=== PATIENT | male | born 1960 | race African-American/Black ===

== ENCOUNTER 2018-07-11 03:31 | Emergency (ER) | payer OTHER ==
[~2018-07-11] VITALS: Ht 180.3 cm; Wt 83.2 kg
[2018-07-11 03:35] VITALS: Ht 180.3 cm; Wt 83.2 kg
[2018-07-11] MEDS ORDERED: SOD CHLORIDE 0.9% 1,000 ML IV STA (04:16)
[2018-07-11] MEDS ORDERED: ONDANSETRON 4 MG INJ IV STA (04:16)
[2018-07-11] MEDS ORDERED: LIDOCAINE/MYLANTA 40 ML BTL PO STA (04:16)
[2018-07-11] MEDS ORDERED: FAMOTIDINE 20 MG INJ IV STA (04:16)
--- NOTE | 2018-07-11 04:19 | ERD ---
ER Documentation Chief Complaint Chief Complaint chest pain/abdominal pain x 2 days HPI This is a 58-year-old male with no reported past medical history who is presenting with 2-3 days of feeling generally unwell, reported fever/chills, left upper quadrant abdominal pain, nausea, a few episodes of nonbilious nonbloody vomiting, productive cough of clear sputum with a mild aching chest discomfort that is exacerbated by coughing. The patient also endorses waxing and waning significant lightheadedness with a sensation of passing out recently while driving. 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 The patient reports that his symptoms began a few hours after eating an egg Mc[employer] at [employer]. He does not report being around any sick contacts. He does not report any alleviating or exacerbating factors. He denies any constipation or diarrhea. He has not had any black or bloody or tarry stools. He denies dysur ia or hematuria or urgency or frequency. The patient has had no headache or vision changes. The patient does not endorse neck or back pain. The patient denies dizziness. The patient has had no trouble breathing. The patient denies nausea or vomiting. The patient has had no focal deficits. The patient has had no weakness or numbness or tingling to the face or extremities. ROS All systems reviewed and are negative except as per history of present illness. Allergies Allergies: Coded Allergies: iodine (Verified Allergy, Unknown, 07/11/18) PMhx/Soc Medical and Surgical Hx: pt denies Medical Hx, pt denies Surgical Hx History of Surgery: No Hx Neurological Disorder: No Hx Respiratory Disorders: No Hx Cardiac Disorders: No Hx Psychiatric Problems: No Hx Miscellaneous Medical Probl: No Hx Alcohol Use: No Hx Substance Use: No Hx Tobacco Use: No FmHx Family History: No diabetes Physical Exam Vitals Vital Signs Date Temp Pulse Resp B/P (MAP) Pulse Ox O2 O2 Flow FiO2 Time Delivery Rate 07/11/18 99.2 92 18 129/62 95 Room Air 04:00 (84) 07/11/18 99.2 110 18 129/62 95 03:35 (84) Physical Exam Const: No apparent distress, well-developed, well-nourished Head: Normocephalic, Atraumatic Eyes: Normal Conjunctiva. Extraocular movements intact. Pupils equal, round and reactive to light ENT: Normal External Ears, Nose and Mouth. Neck: Full range of motion. No meningismus. Resp: Clear to auscultation bilaterally, No wheezes, rales or rhonchi Cardio: Regular rate and rhythm. No murmurs, rubs or gallops Abd: Obese, soft, non distended. Mild epigastric and left upper quadrant tenderness. Normal bowel sounds Skin: No petechiae or rashes Back: No midline tenderness. No CVA tenderness Ext: No cyanosis, or edema Neur: Awake and alert, oriented 4. Cranial nerves intact. No facial droop. Normal strength, sensation and coordination. Psych: Normal Mood and Affect Result Diagram: 07/11/18 0355 07/11/18 0355 Results 24 hrs Laboratory Tests Test 07/11/18 03:55 White Blood Count 7.7 10^3/ul Red Blood Count 4.53 10^6/ul Hemoglobin 14.7 g/dl Hematocrit 44.3 % Mean Corpuscular Volume 97.8 fl Mean Corpuscular Hemoglobin 32.5 pg Mean Corpuscular Hemoglobin Concent 33.2 g/dl Red Cell Distribution Width 13.0 % Platelet Count 243 10^3/UL Mean Platelet Volume 8.9 fl Immature Granulocytes % 0.300 % Neutrophils % 72.3 % Lymphocytes % 16.7 % Monocytes % 7.1 % Eosinophils % 3.1 % Basophils % 0.5 % Nucleated Red Blood Cells % 0.0 /100WBC Immature Granulocytes # 0.020 10^3/ul Neutrophils # 5.5 10^3/ul Lymphocytes # 1.3 10^3/ul Monocytes # 0.5 10^3/ul Eosinophils # 0.2 10^3/ul Basophils # 0.0 10^3/ul Nucleated Red Blood Cells # 0.0 10^3/ul Prothrombin Time 12.4 Sec Prothrombin Time Ratio 1.0 INR International Normalized Ratio 0.91 Sodium Level 142 mmol/L Potassium Level Pending Chloride Level 105 mmol/L Carbon Dioxide Level 27 mmol/L Anion Gap 10 Blood Urea Nitrogen 14 mg/dl Creatinine 1.41 mg/dl Est Glomerular Filtrat Rate mL/min 52 mL/min Glucose Level 139 mg/dl Calcium Level 9.1 mg/dl Total Bilirubin 0.4 mg/dl Direct Bilirubin 0.00 mg/dl Indirect Bilirubin 0.4 mg/dl Aspartate Amino Transf (AST/SGOT) 51 IU/L Alanine Aminotransferase (ALT/SGPT) 28 IU/L Alkaline Phosphatase 81 IU/L Troponin I 0.014 ng/ml Total Protein 8.1 g/dl Albumin 4.4 g/dl Globulin 3.70 g/dl Albumin/Globulin Ratio 1.18 Lipase 45 U/L Current Medications Medications Dose Sig/Jay Start Time Status Last (Trade) Ordered Route PRN Stop Time Admin Dose Reason Admin Sodium 1,000 ml @ Q1H STAT 07/11/18 DC 07/11/18 Chloride 1,000 mls/hr IV 04:16 04:20 07/11/18 05:15 Ondansetron 4 mg ONCE STAT 07/11/18 DC 07/11/18 HCl (Zofran IV 04:16 05:25 Inj) 07/11/18 04:36 Famotidine 20 mg ONCE STAT 07/11/18 DC 07/11/18 (Pepcid Iv) IV 04:16 05:25 07/11/18 04:36 40 ml ONCE STAT 07/11/18 DC 07/11/18 Miscellaneous PO 04:16 05:25 Medication 07/11/18 04:36 (Gi Cocktail (2)) Procedures/MDM MDM The patient's presentation warrants further investigation. Previous medical records, if available, were reviewed. LABS The patient's laboratory testing was obtained and reviewed. No emergent treatment was required unless described below. CBC: No E/o of systemic infection or severe anemia or thrombocytopenia Chemistry: No E/o severe acidosis or alkalosis or liver disease or diabetic ketoacidosis. Mildly elevated creatinine concerning for mild ALVARO. Lipase: No E/o pancreatitis Troponin: No E/o acute ischemia Urine: No E/o acute infection or hematuria Influenza: Negative EKG EKG read by me: Rate/Rhythm: Mild sinus tachycardia at 103 bpm. Intervals: Normal [place]: Normal Impression: Nonspecific repolarization changes without evidence of acute ischemia. Sinus tachycardia. IMAGING Imaging and Radiology interpretation reviewed. CXR FINDINGS: SUPPORT DEVICES: None CARDIAC AND MEDIASTINAL SILHOUETTES: Normal in size . LUNGS AND PLEURAL SPACE: No infiltrates, consolidation, pulmonary edema or pleural effusion. . PNEUMOTHORAX: None. OSSEOUS STRUCTURES: Unremarkable. IMPRESSION: No acute pulmonary disease. Electronically viewed and signed by Debo Acharya Physician on 07/11/2018 04:50 TREATMENT/DISPOSITION The patient presents with epigastric and left upper quadrant abdominal pain with episodes of nausea and vomiting. The patient also reports fever at home, though he is not febrile now. The patient also endorses chest discomfort with a cough. The patient's overall presentation is concerning for a possible viral infection. An influenza study was completed which was found to be negative. The patient's symptoms have also been ongoing for 2-3 days. The patient was evaluated for a possible abdominal pathology. The patient's lipase was unremarkable. I have low suspicion for pancreatitis. Gastritis versus GERD versus PUD are also possibilities. The patient was treated for this with some relief of his symptoms. The patient presents with abdominal pain. The patient does not have any evidence of peritonitis. The patient does not have clinical symptoms concerning for mesenteric ischemia or ischemic colitis. The patient does not have right upper quadrant tenderness, and I have low suspicion for gallstones, cholecystitis or biliary colic. The patient does not have any epigastric pain. I have low suspicion for gastritis, PUD or GERD. The patient does not have any right lower quadrant tenderness, or periumbilical tenderness. I have low suspicion for appendicitis. The patient does not have suprapubic tenderness. I have decreased suspicion for cystitis. The patient does not have any left lower quadrant tenderness, and I have low suspicion for diverticulosis or diverticulitis. The patient does not have any flank tenderness. The patient does not have gross hematuria. I have decreased suspicion for nephrolithiasis or renal colic. The patient does not have any palpable pulsatile mass or severe abdominal pain radiating to the back. I have low suspicion for aortic aneurysm, dissection or rupture. The patient reports an aching chest discomfort, associated with his significant cough. I do suspect chest wall pain. However, a cardiac workup was completed. The patient's chest xray does not reveal pneumonia or pneumothorax or pleural effusions or pulmonary edema. The patient does not have a widened mediastinum and does not have signs or symptoms concerning for thoracic aortic aneurysm or dissection. The patient does not have pneumomediastinum or signs concerning for esophageal tear or rupture. The patient has no clinical or radiographic signs of pericardial effusion or tamponade. The patient does not have pneumoperitoneum and I have decreased suspicion of viscus perforation as possible referred pain. The patient does not have a history of heart failure and I have low suspicion for this. The patient does not have a diagnosis of COPD and is not wheezing to day. The patient is not tachypneic or hypoxic. The patient is breathing comfortably and without pleuritic pain. The patient is not on hormonal therapy. The patient has no history of clotting or bleeding disorders. The patient has no calf tenderness. The patient has had no hemoptysis. I have decreased suspicion for PE. The patient's troponin and EKG are reassuring. I have low suspicion for acute coronary syndrome. Upon reevaluation of the patient, symptoms have improved. No emergent diagnoses were identified. At this time, I feel that the patient stable for discharge. The patient was instructed to follow-up with a primary care physician in 1-3 days. The patient will be given strict precautions with which to return to the emergency department. Prescriptions: Ibuprofen, Tessalon Perles, Zofran The patient's blood pressure was elevated at greater than 120/80 while in the emergency department. The patient was otherwise stable with no evidence of hypertensive urgency or emergency. The patient does not require admission for blood pressure control. I have discussed with the patient the risks of hypertension. I have instructed the patient to return to the ER for any new or worsening symptoms including chest pain, shortness of breath, headache, blurred vision, confusion, nausea, vomiting or LOC. I have advised the patient to follow up with the primary care physician for outpatient monitoring and treatment for hypertension in 1-3 days. Disclaimer: Inadvertent spelling and grammatical errors are likely due to EHR/dictation software use and do not reflect on the overall quality of patient care. Note that the electronic time recorded on this note does not necessarily reflect the actual time of the patient encounter. Departure Diagnosis: Primary Impression: URI (upper respiratory infection) URI type: unspecified URI Qualified Codes: J06.9 - Acute upper respiratory infection, unspecified Additional Impressions: Chest congestion Cough Nausea & vomiting Vomiting type: unspecified Vomiting Intractability: non-intractable Qualified Codes: R11.2 - Nausea with vomiting, unspecified Epigastric pain Left upper quadrant pain Condition: Stable RADHAMES LINARES MD Jul 11, 2018 04:08
[2018-07-11] MEDS ORDERED: ONDA4TAB8 PO (06:06)
[2018-07-11] MEDS ORDERED: IBUP-1542 PO (06:06)
[2018-07-11] MEDS ORDERED: BENZ-6 PO (06:06)
[2018-07-11] MEDS ORDERED: FAMO-96 PO (06:06)
[2018-07-11 08:21] VITALS: BP 136/63; PULSE 90; RESP 18
== END 2018-07-11 08:22 | disposition home or self-care (01) ==
LOC: E/R 03:31
DX: J06.9 Acute upper respiratory infection, unspecified (principal); R11.2 Nausea with vomiting, unspecified; R10.13 Epigastric pain; R10.12 Left upper quadrant pain
CPT/HCPCS: 36415; 71045; 74176; 80053; 83690; 84484; 85025; 85610; 87400; 93005; 96374; 96375; J2405; J7030; Z7502; Z7610

== ENCOUNTER 2018-11-03 10:55 | Emergency (ER) | payer MEDICAID ==
[~2018-11-03] VITALS: Ht 180.3 cm; Wt 127.0 kg
[~2018-11-03 10:55] MED LIST: BENZ-6 PO; FAMO-96 PO; IBUP-1542 PO; ONDA4TAB8 PO
[2018-11-03 10:57] VITALS: Ht 180.3 cm; Wt 127.0 kg
--- NOTE | 2018-11-03 12:40 | ERD ---
ER Documentation Chief Complaint Chief Complaint C/O CP, SOB, H/A, DIFFICULT TO SAY A WORD FOR COUPLE MINUTES, RESOLVED NOW HPI Patient is a 58-year-old male with no medical problems who presents with difficulty speaking. The patient was at work when he said that he could not speak for about 2 to 3 minutes. He came out of the blue. He said that he could not get words out. He also felt his "right head crackling". The patient then had chest pain across his chest. This happened at 10 AM. He is now speaking in full sentences and has no complaints. He is able to move all extremities. Upon review of old medical record the patient one previous visit to the ER in June 2018. He does not currently have a primary doctor. ROS All systems reviewed and are negative except as per history of present illness. Medications Home Meds Discontinued Scripts Ondansetron Hcl* (Zofran*) 4 Mg Tablet, 4 MG PO Q6H for NAUSEA AND/OR VOMITING, #30 TAB Prov:RADHAMES LINARES MD 07/11/18 Famotidine* (Pepcid*) 20 Mg Tablet, 20 MG PO BID for 14 Days, TAB Prov:RADHAMES LINARES MD 07/11/18 Benzonatate* (Tessalon Perle*) 100 Mg Capsule, 100 MG PO Q8H PRN for COUGH, #15 CAP Prov:RADHAMES LINARES MD 07/11/18 Ibuprofen* (Motrin*) 600 Mg Tab, 600 MG PO Q6H PRN for PAIN AND OR ELEVATED TEMP, #30 TAB Prov:RADHAMES LINARES MD 07/11/18 Allergies Allergies: Coded Allergies: iodine (Verified Allergy, Unknown, 11/03/18) PMhx/Soc History of Surgery: No Anesthesia Reaction: No Hx Neurological Disorder: No Hx Respiratory Disorders: No Hx Cardiac Disorders: No Hx Psychiatric Problems: No Hx Miscellaneous Medical Probl: No Hx Alcohol Use: Yes Hx Substance Use: No Hx Tobacco Use: Yes Smoking Status: Current every day smoker FmHx Family History: diabetes Physical Exam Vitals Vital Signs Date Temp Pulse Resp B/P (MAP) Pulse Ox O2 O2 Flow FiO2 Time Delivery Rate 11/03/18 98.3 72 16 138/82 99 Room Air 13:39 (100) 11/03/18 98.2 79 18 147/91 99 10:57 (109) Physical Exam Const: No acute distress Head: Atraumatic Eyes: Normal Conjunctiva ENT: Normal External Ears, Nose and Mouth. Neck: Full range of motion. No meningismus. Resp: Clear to auscultation bilaterally Cardio: Regular rate and rhythm, no murmurs Abd: Soft, non tender, non distended. Normal bowel sounds Skin: No petechiae or rashes Back: No midline or flank tenderness Ext: No cyanosis, or edema Neur: Awake and alert, cranial nerves II through XII are intact, no slurred speech, no difficulty with speaking, strength is 5 out of 5 in all 4 extremities Psych: Normal Mood and Affect Result Diagram: 11/03/18 1211 11/03/18 1211 Results 24 hrs Laboratory Tests Test 11/03/18 12:11 11/03/18 12:25 White Blood Count 5.8 10^3/ul Red Blood Count 4.10 10^6/ul Hemoglobin 13.4 g/dl Hematocrit 40.8 % Mean Corpuscular Volume 99.5 fl Mean Corpuscular Hemoglobin 32.7 pg Mean Corpuscular Hemoglobin Concent 32.8 g/dl Red Cell Distribution Width 13.2 % Platelet Count 221 10^3/UL Mean Platelet Volume 8.8 fl Immature Granulocytes % 0.300 % Neutrophils % 56.3 % Lymphocytes % 29.3 % Monocytes % 7.4 % Eosinophils % 6.2 % Basophils % 0.5 % Nucleated Red Blood Cells % 0.0 /100WBC Immature Granulocytes # 0.020 10^3/ul Neutrophils # 3.3 10^3/ul Lymphocytes # 1.7 10^3/ul Monocytes # 0.4 10^3/ul Eosinophils # 0.4 10^3/ul Basophils # 0.0 10^3/ul Nucleated Red Blood Cells # 0.0 10^3/ul Prothrombin Time 12.4 Sec Prothrombin Time Ratio 1.0 INR International Normalized Ratio 0.91 Activated Partial Thromboplast Time 30.7 Sec Sodium Level 146 mmol/L Potassium Level 4.1 mmol/L Chloride Level 106 mmol/L Carbon Dioxide Level 30 mmol/L Anion Gap 10 Blood Urea Nitrogen 11 mg/dl Creatinine 1.30 mg/dl Est Glomerular Filtrat Rate mL/min > 60 mL/min Glucose Level 113 mg/dl Hemoglobin A1c 6.7 % Calcium Level 8.9 mg/dl Troponin I < 0.012 ng/ml Triglycerides Level 80 mg/dl Cholesterol Level 169 mg/dl LDL Cholesterol, Calculated 122 mg/dl HDL Cholesterol 31 mg/dl Cholesterol/HDL Ratio 5.4 RATIO Bedside Glucose 103 mg/dL Procedures/MDM EKG read by me: Rate/Rhythm: Regular rate and rhythm at a normal rate Intervals: Normal Impression: No evidence of ischemia or arrhythmia CT brain negative per radiology. Chest x-ray negative per radiology. Smoking Cessation Therapy: Pt. was lectured for greater than 3 minutes on the health risks of continued smoking and the benefits of cessation. Patient is a 58-year-old male with no medical problems other than smoking who presents with transient aphasia for 2 to 3 minutes. I believe this is likely a TIA. His ABCD 2 score is 2 placing him in a low risk category and I do not believe he requires admission to the hospital at this time. However he needs close follow-up with her primary doctor the local clinics within 24 to 48 hours. He can return for any worsening symptoms. I doubt stroke or brain mass. The patient can return for any worsening symptoms. ABCD Score for TIA from [email or web address] on 11/03/2018 All calculations should be rechecked by clinician prior to use RESULT SUMMARY: 2 points Per the validation study, 0-3 points: Low Risk 2-Day Stroke Risk: 1.0% 7-Day Stroke Risk: 1.2% 90-Day Stroke Risk: 3.1% INPUTS: Age ? 60 years > 0 = No BP ? 140/90 mmHg > 1 = Yes Clinical features of the TIA > 1 = Speech disturbance without weakness Duration of symptoms > 0 = <10 minutes History of diabetes > 0 = No Departure Diagnosis: Primary Impression: TIA (transient ischemic attack) Condition: Fair Patient Instructions: Transient Ischemic Attack (TIA) Referrals: COMMUNITY CLINICS YOU HAVE RECEIVED A MEDICAL SCREENING EXAM AND THE RESULTS INDICATE THAT YOU DO NOT HAVE A CONDITION THAT REQUIRES URGENT TREATMENT IN THE EMERGENCY DEPARTMENT. FURTHER EVALUATION AND TREATMENT OF YOUR CONDITION CAN WAIT UNTIL YOU ARE SEEN IN YOUR DOCTORS OFFICE WITHIN THE NEXT 1-2 DAYS. IT IS YOUR RESPONSIBILITY TO MAKE AN APPOINTMENT FOR FOLOW-UP CARE. IF YOU HAVE A PRIMARY DOCTOR --you should call your primary doctor and schedule an appointment IF YOU DO NOT HAVE A PRIMARY DOCTOR YOU CAN CALL OUR PHYSICIAN REFERRAL HOTLINE AT IF YOU CAN NOT AFFORD TO SEE A PHYSICIAN YOU CAN CHOSE FROM THE FOLLOWING [facility] [address] [facility] [address] [facility] [address] [facility] [address]. [facility] [address] [facility] [facility]. [address] Additional Instructions: Call your primary care doctor TOMORROW for an appointment during the next 1-2 days.See the doctor sooner or return here if your condition worsens before your appointment time. LEE SEN MD Nov 03, 2018 12:40
[2018-11-03 13:39] VITALS: BP 138/82; PULSE 72; RESP 16
== END 2018-11-03 13:40 | disposition home or self-care (01) ==
LOC: E/R 10:55
DX: I63.9 Cerebral infarction, unspecified (principal); F17.210 Nicotine dependence, cigarettes, uncomplicated; R40.2142 Coma scale, eyes open, spontaneous, at arrival to emergency department; R40.2362 Coma scale, best motor response, obeys commands, at arrival to emergency department; R40.2252 Coma scale, best verbal response, oriented, at arrival to emergency department; R94.02 Abnormal brain scan
CPT/HCPCS: 36415; 70450; 71045; 80048; 80061; 82962; 83036; 84484; 85025; 85610; 85730; 93005; Z7502